=== PATIENT | female | born 1965 | race Caucasian/White ===

== ENCOUNTER 2022-09-23 10:58 | Outpatient (AMB) | payer OTHER, SELFPAY ==
--- NOTE | 2022-09-23 11:21 | MHC.PC.OV ---
Vital Signs 09/23/22 11:22 Height 5 ft 2.99 in Weight 191 lb BMI 33.8 BP 138/76 Blood Pressure Location Lt brachial Position Sitting Respiration 16 Pulse 62 Pulse Source Pulse Oximeter Temp 98.2 F Temp Source Oral Pulse Oximetry (%) 98 Oxygen Delivery Method Room Air Intake Visit Reasons: New patient-Left foot pain Intake Note: Patient is here as a new patient, is concerned about rash on hands, and a bone spur in left foot. Accompanied by: Daughter Allergies No Known Allergies Allergy (Verified 09/23/22 12:01) Medication List - Last Reconciled 09/23/22 by Godwin Kuo CNP slfnlfrbw-[id number]-[id number] ala 50-200-25 mg (Biktarvy) 1 tab PO DAILY Dental Screening Did you have a dental visit in the last 12 months?: Yes Did you have a dental problem in the last 6 months where you did not have access to dental care?: No Was dental information given to patient?: No HPI HPI Comments History of Present Illness Details 56-year-old Thai speaking female, accompanied by her daughter, presents to [facility] care She relocated to [facility] from [facility] [place] a year ago She notes she has not been seen by a PCP for the past 10 years. She had routine blood work done in [place] a year ago She has PMH significant for HTN (not on medications), HIV, on Biktarvy which she takes daily; history of bone spur left bottom foot which is controlled; on and off itchy rash to her hands. 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 She also reports fungal infection of the left great toe with discolored nail which improves and worsens. No acute symptoms today. PFSH Medical History (Updated 09/23/22 @ 12:43 by Godwin Kuo CNP) Bone spur of left foot Endometriosis High blood pressure HIV (human immunodeficiency virus infection) Jaundice Surgical History (Updated 09/23/22 @ 11:31 by Miranda Yu CMA) H/O total hysterectomy Family History (Updated 09/23/22 @ 11:32 by Miranda Yu CMA) Mother High blood pressure Father Substance abuse Social History (Updated 09/23/22 @ 11:34 by Miranda Yu CMA) Household Members: Family Housing: Apartment Are you a primary pharmacist critical care to a significant other at home: No Do you presently have visiting nurse or other home services: No 75 years or older and lives alone: No Alcohol intake: current Patient Tobacco Use Status: Never used Tobacco e-Cigarette/Vaping Use: Never Used service: No Current occupational status: employed Current occupation: [employer] Cognitive needs: No Hearing needs: No Vision needs: No Questionnaire PHQ-9 Over the last 2 weeks, how often have you been bothered by any of the following problems? 1. Little interest or pleasure in doing things: not at all 2. Feeling down, depressed, or hopeless: not at all 3. Trouble falling or staying asleep, or sleeping too much: several days 4. Feeling tired or having little energy: several days 5. Poor appetite or overeating: several days 6. Feeling bad about yourself - or that you are a failure or have let yourself or your family down: not at all 7. Trouble concentrating on things, such as reading the newspaper or watching television: not at all 8. Moving or speaking so slowly that other people could have noticed. Or the opposite - being so fidgety or restless that you have been moving around a lot more than usual: not at all 9. Thoughts that you would be better off or of hurting yourself in some way: not at all Total score: 3 Depression Screening Interpretation: Negative Source: Developed by Drs. Rey Lopez, Tessa Lowe, Marshall Lilly and colleagues, with an educational jamison from [employer]. Thrive Questionnaire I am a: Patient What is your living situation today?: I have a steady place to live Within the past 12 months, did the food you bought not last and you didn't have the money to get more?: Never true Within the past 12 months, did you worry whether your food would run out before you got money to buy more?: Never true Do you have trouble paying for medicines?: No Do you have trouble getting transportation to medical appointments?: No Do you have trouble paying your heating and electricity bill?: No Do you have trouble taking care of your child, family member or friend?: No Do you have trouble with day-to-day activities such as bathing, preparing meals, shopping, managing finances, etc.?: No Are you currently unemployed and looking for a job?: No Are you interested in more education?: No JAYSHREE-7 AMB Questionnaire JAYSHREE-7 Feeling nervous, anxious, or on edge: 0 = Not at all Not being able to stop or control worryin = Several days Worrying too much about different things: 1 = Several days Trouble relaxin = Not at all Being so restless that it is hard to sit still: 0 = Not at all Becoming easily annoyed or irritable: 1 = Several days Feeling afraid as if something awful might happen: 0 = Not at all Total JAYSHREE-7 score (0-4 normal; 5-9 mild; 10-14 moderate; 15-21 severe): 3 Source: Developed by Drs. Rey Lopez, Tessa Lowe, Marshall Lilly and colleagues, with an educational jamison from [employer]. Review of Systems Const Details: Const Denies chills, Denies fatigue, Denies fever(s), Denies headache(s) and Denies weakness ENT Denies dizziness and Denies headache(s) Card Denies chest pain, Denies lightheadedness, Denies dyspnea and Denies other (Palpitations) Resp Denies cough, Denies dyspnea, Denies wheezing and Denies other ( shortness of breath) GI Denies abdominal pain, Denies melena, Denies hematochezia, Denies change in bowel habits, Denies dyspepsia and Denies nausea Denies hematuria and Denies dysuria Musc Denies abnormal gait, Denies myalgias, Denies arthralgias, Denies numbness and Denies tingling Skin/Breast Reports rash, Reports fungal infection of the toenail, Denies unusual bruising and Denies wounds Neuro Denies abnormal gait, Denies dizziness, Denies headache(s), Denies memory loss, Denies numbness, Denies Sensory deficit (Neuro), Denies tingling and Denies weakness Psych Denies anxiety, Denies depression, Denies memory loss Endo Denies cold intolerance, Denies fatigue, Denies heat intolerance, Denies polydipsia and Denies polyuria Aller/Immun Denies wheezing Physical exam (Primary Care) Vital Signs: Last Vital Signs Temp 98.2 F 09/23/22 11:22 Pulse 62 09/23/22 11:22 Resp 16 09/23/22 11:22 BP 138/76 09/23/22 11:22 Pulse Ox 98 09/23/22 11:22 Oxygen Delivery Method Room Air 09/23/22 11:22 BMI result Body Mass Index 33.8 Tobacco/Smoking Status: Tobacco use Status Patient Tobacco Use Status Never used Tobacco 09/23/22 11:39 e-Cigarette/Vaping Use Never Used 09/23/22 11:39 PHQ-9: PHQ-9 Score PHQ-9: Total score 3 09/23/22 11:43 Depression Screening Interpretation: Negative Const Other: General: no acute distress and well developed Nutritional Appearance: well nourished Orientation/consciousness: patient oriented x3 HENMT Head: Yes normocephalic and Yes atraumatic Eyes General: appearance normal, both eyes and all related structures Pupils: Equal, round and reactive pupils present EOM: EOMs intact bilaterally Resp Effort & Inspection: normal respiratory effort Auscultation: clear to auscultation bilaterally Cardio Rate: regular rate Rhythm: regular rhythm Heart sounds: S1 normal heart sound present, S2 normal heart sound present, no gallops, no murmurs and no rubs GI Palpation (GI): No Abdominal aortic bruit present, Soft to palpation, nontender, No hepatosplenomegaly present and No Rebound tenderness present Auscultation: normal bowel sounds General: Yes no CVA tenderness Back/Spine/Pelvis Back: no CVA tenderness Cervical Spine: cervical ROM normal and No Cervical spine tenderness Thoracic/Lumbar Spine: thoraco-lumbar ROM normal, No pain with thoraco-lumbar ROM, No thoracic spinal tenderness and No lumbar spinal tenderness Extrem General: Yes normal to inspection, No edema and No calf tenderness Skin General: warm and dry. Normal skin color. Normal skin turgor Lesions: no lesions Rashes: Few nonraised, pink rash in the web of the right hand; dry skin noted to both hands Trauma: no lacerations or abrasions Wounds: no wounds Nails: Soni color nail of the left great toe Neuro General: patient oriented x3, gait normal and no focal neuro deficits Cranial nerves: Yes Equal, round and reactive pupils present Cognition (Neuro): normal cognition Gait exam (Neuro): Normal gait present Motor exam (neuro): 5/5 motor strength present throughout Sensory Exam: No Sensory deficit (Neuro) Psych Appearance: grossly normal Affect: normal affect Attitude: cooperative Thought process: Normal thought process present Assessment and Plan Assessment & Plan (1) HIV (human immunodeficiency virus infection): Code(s): B20 - Human immunodeficiency virus [HIV] disease Plan: No acute symptoms Continue to take Biktarvy as prescribed Follow up with PCP with concerns or symptoms Verbalized understanding and agrees with the treatment plan (2) High blood pressure: Code(s): I10 - Essential (primary) hypertension Plan: BP is currently 138/76, within goal of less than 140/90 Low sodium diet encouraged Follow up in 1 month or return sooner with symptoms or concerns Verbalized understanding and agreed with the plan (3) Laboratory tests ordered as part of a complete physical exam (CPE): Code(s): Z00.00 - Encounter for general adult medical examination without abnormal findings Plan: Fasting labs ordered as part of a complete physical exam. Advised to fast for at least 10 hours before getting labs drawn. May drink water Verbalized understanding and agreed with treatment plan. (4) Rash of hands: Code(s): R21 - Rash and other nonspecific skin eruption Plan: Reports on and off itchy rash to her hands Few nonraised, pink rash in the web of the right hand; dry skin noted to both hands Likely due to dry skin, eczema may also be possible Use lotion to moisturize skin May use hydrocortisone cream for severe itching Return with worsening signs and symptoms Verbalized understanding and agreed with treatment plan. (5) Onychomycosis of left great toe: Code(s): B35.1 - Tinea unguium Plan: Reports fungal infection of the left great toe with discolored nail which improves and worsens Soni color nail of the left great toe Declined oral medication treatment at this time Encouraged to inform PCP if she changes her mind on medication treatment Verbalized understanding and agreed with the plan Orders: Orders Complete Blood Count Auto Diff Today Z00.00 - Encounter for general adult medical examination without abnormal findings Comprehensive [place]. Panel Fast Today Z00.00 - Encounter for general adult medical examination without abnormal findings Lipid Panel Today Z00.00 - Encounter for general adult medical examination without abnormal findings TSH reflex Free T4 Today Z00.00 - Encounter for general adult medical examination without abnormal findings UA CC w/rflx Micro + Cult Today Z00.00 - Encounter for general adult medical examination without abnormal findings Coding Level of Care Code New Pt Level 3 (16851) Diagnoses HIV (human immunodeficiency virus infection) B20 High blood pressure I10 Laboratory tests ordered as part of a complete physical exam (CPE) Z00.00 Rash of hands R21 Onychomycosis of left great toe B35.1 Time Spent (min) 30
[2022-09-23 11:22] VITALS: BP 138/76; PULSE 62; RESP 16; TEMP 36.8; O2SAT 98; BMI 33.8
== END 2022-09-23 12:27 | disposition home or self-care (01) ==
PROVIDERS: PCP Nurse Practitioner Family; Visit Provider Nurse Practitioner Family
DX: B20 Human immunodeficiency virus [HIV] disease (principal); I10 Essential (primary) hypertension; Z00.00 Encounter for general adult medical examination without abnormal findings; R21 Rash and other nonspecific skin eruption; B35.1 Tinea unguium
CPT/HCPCS: 99203

== ENCOUNTER 2022-10-15 07:47 | Outpatient (REF) | payer OTHER, SELFPAY ==
[2022-10-15 11:22] LABS: MANUAL DIFF FLAG NO
[2022-10-15 11:45] LABS: Basophils Percent Auto 0.9 % (0-2); Eosinophils Absolute Auto 0.1 X10*3/uL (0.0-0.4); Eosinophils Percent Auto 2.5 % (0-4); Hematocrit 45.6 % (37.0-47.0); Hemoglobin 14.7 g/dl (12.0-16.0); Lymphocytes Absolute Auto 1.2 X10*3/uL (1.2-4.9); Lymphocytes Percent Auto 37.1 % (20-40); Mean Corpuscular HGB Conc 32.2 g/dl (31.0-35.0); Mean Corpuscular Hemoglobin 28.6 pg (27.0-33.0); Mean Corpuscular Volume 88.7 fL (80.0-98.0); Mean Platelet Volume 10.6 fL (9.4-12.3); Monocytes Absolute Auto 0.3 X10*3/uL (0.1-1.2); Neutrophils Absolute Auto 1.6 x10*3/uL (2.0-8.3); Neutrophils Percent Auto 50.5 % (45-73); Platelet Count 225 X10*3/uL (160-400); Red Blood Count 5.14 X10*6/uL (4.20-5.50); Red Cell Distribution Width 12.3 % (11.0-16.0); White Blood Count 3.2 X10*3/uL (4.8-10.8)
[2022-10-15 11:50] LABS: Appearance Urine Clear; Color Urine Yellow; Glucose Urine UA Negative (Negative); Leukocyte Esterase Urine Negative (Negative); Nitrite Urine Negative (Negative); PH 7.5 (5.0-9.0); Specific Gravity - Urine 1.015 (1.005-1.025); Urine Blood Negative (Negative); Urine Ketones Negative (Negative); Urine Protein Negative (Neg-Trace)
[2022-10-15 12:38] LABS: Alanine Aminotransferase 26 U/L (0-31); Albumin Level 4.5 g/dL (3.5-5.0); Alkaline Phosphatase 54 U/L (39-117); Anion Gap 14 (12-20); Aspartate Amino Transferase 21 U/L (5-31); Bilirubin Total 0.5 mg/dL (0.0-1.0); Blood Urea Nitrogen 16 mg/dL (9-16); Calcium 10.2 mg/dL (8.4-10.2); Carbon Dioxide 27 mmol/L (22-29); Chloride 104 mmol/L (96-108); Cholesterol 230 mg/dL; Estimated Glomerular Filt Rate > 60; Glucose Fasting 116 mg/dL (60-99); HDL Cholesterol 55 mg/dL; LDL Cholesterol Calculated 155 mg/dl; Potassium 4.7 mmol/L (3.3-5.1); Sodium 140 mmol/L (135-145); Triglycerides 103 mg/dL
[2022-10-15 12:56] LABS: TSH reflex Free T4 1.01 uIU/mL (0.32-4.0)
== END 2022-10-15 07:48 | disposition home or self-care (01) ==
LOC: HO.HMGCLDS 07:47
PROVIDERS: PCP Nurse Practitioner Family; Visit Provider Nurse Practitioner Family
DX: Z00.00 Encounter for general adult medical examination without abnormal findings (principal)
CPT/HCPCS: 36415; 80053; 80061; 81003; 84443; 85025

== ENCOUNTER 2022-10-21 14:46 | Outpatient (AMB) | payer OTHER, SELFPAY ==
--- NOTE | 2022-10-21 15:12 | MHC.PC.OV ---
Vital Signs 10/21/22 15:13 Height 5 ft 2 in Weight 189 lb BMI 34.6 BP 112/60 Blood Pressure Location Rt brachial Position Sitting Respiration 14 Pulse 82 Pulse Source Pulse Oximeter Temp 97.2 F Temp Source Temporal Artery Scan Pulse Oximetry (%) 99 Oxygen Delivery Method Room Air Intake Visit Reasons: 1 mos labs review, CPE Intake Note: Patient is here today for a physical and to review labs. Patient reports she would like to have a mammogram referral. Yard Brakeman Required: Yes Yard Brakeman Language: [facility] Yard Brakeman Name: Daughter Kain is present. Accompanied by: Daughter Allergies No Known Allergies Allergy (Verified 10/21/22 15:23) Medication List - Last Reconciled 10/21/22 by Godwin Kuo, RUTHANN blryswbdt-ymhibvhn-ktwjhwp ala 50-200-25 mg (Biktarvy) 1 tab PO DAILY Tobacco use date assessed: 10/21/22 Dental Screening Dental Screen Date: 10/21/22 Did you have a dental visit in the last 12 months?: Yes Did you have a dental problem in the last 6 months where you did not have access to dental care?: No Was dental information given to patient?: Patient has dentist HPI HPI Comments History of Present Illness Details 56-year-old Jamaican speaking female, accompanied by her daughter, presents for review of recent blood work and a complete physical exam. She notes the rash on her hands completely resolved with hydrocortisone cream. No acute symptoms today. She notes her last mammogram was 5 years ago in [facility]: questionable She states she has never had colonoscopy; she requests a referral She reports h/o total hysterectomy 13 years ago. She is not followed by Gynecology She states she has not received the shingles vaccines Interpretation by the patient's daughter per patient's preference. [facility] Medical History Bone spur of left foot Endometriosis High blood pressure HIV (human immunodeficiency virus infection) Jaundice Surgical History H/O total hysterectomy Family History Mother High blood pressure Father Substance abuse Social History (Reviewed 10/21/22 @ 15:21 by Ruth Guerrero Household Members: Family Housing: Apartment Are you a primary respiratory care program director to a significant other at home: No Do you presently have visiting nurse or other home services: No 75 years or older and lives alone: No Alcohol intake: current Patient Tobacco Use Status: Never used Tobacco e-Cigarette/Vaping Use: Never Used service: No Current occupational status: employed Current occupation: [employer] Cognitive needs: No Hearing needs: No Vision needs: No Review of Systems Const Details: Denies chills, Denies fatigue, Denies fever(s), Denies headache(s) and Denies weakness HEENT Denies change in vision, Denies dizziness, Denies headache(s), Denies hearing loss, Denies nasal congestion, Denies sinus pain, Denies sinus pressure and Denies sore throat Card Denies chest pain, Denies lightheadedness, Denies dyspnea and Denies other (palpitations) Resp Denies cough, Denies dyspnea and Denies wheezing GI Denies abdominal pain, Denies melena, Denies hematochezia, Denies change in bowel habits, Denies dyspepsia and Denies nausea Denies hematuria and Denies dysuria Musc Denies abnormal gait, Denies myalgias, Denies arthralgias, Denies numbness and Denies tingling Skin/Breast Denies rash, Denies unusual bruising and Denies wounds Neuro Denies abnormal gait, Denies dizziness, Denies headache(s), Denies memory loss, Denies numbness, Denies Sensory deficit (Neuro), Denies tingling and Denies weakness Psych Denies anxiety, Denies depression and Denies memory loss Endo Denies cold intolerance, Denies fatigue, Denies heat intolerance, Denies polydipsia and Denies polyuria Matias/Lymph Denies easy bleeding and Denies easy bruising Aller/Immun Denies wheezing Physical exam (Primary Care) Vital Signs: Last Vital Signs Temp 97.2 F 10/21/22 15:13 Pulse 82 10/21/22 15:13 Resp 14 10/21/22 15:13 BP 112/60 10/21/22 15:13 Pulse Ox 99 10/21/22 15:13 Oxygen Delivery Method Room Air 10/21/22 15:13 BMI result Body Mass Index 34.6 Tobacco/Smoking Status: Tobacco use Status Tobacco use date assessed 10/21/22 10/21/22 15:21 Patient Tobacco Use Status Never used Tobacco 10/21/22 15:13 e-Cigarette/Vaping Use Never Used 10/21/22 15:13 Const Other: General: no acute distress, well developed, alert and awake Nutritional Appearance: well nourished Orientation/consciousness: patient oriented x3 HENMT Head: Yes normocephalic and Yes atraumatic Ears: hearing grossly normal bilaterally and TM's normal bilaterally General nose exam: Normal external nose present and Normal nares present Mouth: Normal oral and palatal mucosa present and moist mucous membranes Teeth and gingiva: dentition normal Throat: Yes oropharynx normal Eyes Pupils: Equal, round and reactive pupils present and Pupil accommodation reflex normal EOM: EOMs intact bilaterally Neck Neck: Yes normal visual inspection, Yes no lymphadenopathy and Yes trachea midline Thyroid: Thyroid normal Carotids: no bruits Lymphatic: no lymphadenopathy noted Chest Chest palpation & inspection: normal inspection of the chest Resp Effort & Inspection: normal respiratory effort Auscultation: clear to auscultation bilaterally Cardio Rate: regular rate Rhythm: regular rhythm Heart sounds: S1 normal heart sound present, S2 normal heart sound present, no gallops, no murmurs and no rubs Bruits: no abdominal aortic bruits and no carotid bruits GI Palpation (GI): No Abdominal aortic bruit present, Soft to palpation, nontender, No hepatosplenomegaly present and No Rebound tenderness present Auscultation: normal bowel sounds General: Yes no CVA tenderness Back/Spine/Pelvis Back: no CVA tenderness Cervical Spine: cervical ROM normal and No Cervical spine tenderness Thoracic/Lumbar Spine: thoraco-lumbar ROM normal, No pain with thoraco-lumbar ROM, No thoracic spinal tenderness and No lumbar spinal tenderness Skin General: warm and dry. Normal skin color. Normal skin turgor Lesions: no lesions Rashes: no rashes Trauma: no lacerations or abrasions Wounds: no wounds Nails: Onychomycosis of left great toe Neuro General: patient oriented x3, gait normal and CN's II-XI intact bilaterally Cranial nerves: Yes Equal, round and reactive pupils present Cognition (Neuro): normal cognition Gait exam (Neuro): Normal gait present Motor exam (neuro): 5/5 motor strength present throughout Sensory Exam: No Sensory deficit (Neuro) Deep tendon reflexes (DTR's): Right patellar reflex intensity grade: 2+ and Left patellar reflex intensity grade: 2+ Extrem General: Yes normal to inspection, No edema and No calf tenderness Psych Appearance: grossly normal Affect: normal affect Attitude: cooperative Thought process: Normal thought process present Assessment and Plan Assessment & Plan (1) Normal physical examination, routine: Code(s): Z00.00 - Encounter for general adult medical examination without abnormal findings Plan: No significant physical restrictions or limitations noted Advised to schedule her next physical exam for a year from today Return with symptoms or concerns Verbalized understanding and agreed with treatment plan (2) Pre-diabetes: Code(s): R73.03 - Prediabetes Plan: Recent blood work reviewed with the patient Fasting blood glucose is slightly elevated, 116 A1c is 5.9%, indicates prediabetes ADA diet and routine exercise encouraged Follow-up with concerns or symptoms Verbalized understanding and agreed with treatment plan. (3) Hypercholesterolemia: Code(s): E78.00 - Pure hypercholesterolemia, unspecified Plan: Recent blood work reviewed with the patient Total cholesterol and LDL are slightly elevated She is willing to start maintaining healthy diet Advised to limit foods high in saturated fat and avoid foods high in trans fat Routine exercise encouraged Verbalized understanding and agreed with the treatment plan. (4) Colon cancer screening: Code(s): Z12.11 - Encounter for screening for malignant neoplasm of colon Plan: Referred to Gastroenterology (5) Breast cancer screening by mammogram: Code(s): Z12.31 - Encounter for screening mammogram for malignant neoplasm of breast Plan: Mammogram referral made (6) High blood pressure: Code(s): I10 - Essential (primary) hypertension Plan: Blood pressure is 112/60 Low-sodium diet encouraged Return with concerns or symptoms Verbalized understanding and agreed with the plan. Orders: Orders MM screening mammo BI Today Z12.31 - Encounter for screening mammogram for malignant neoplasm of breast Referrals Gastroenterology Referral Z12.11 - Encounter for screening for malignant neoplasm of colon Coding Level of Care Code New Pt Prev Care 40-64y(16345) Diagnoses Normal physical examination, routine Z00.00 Pre-diabetes R73.03 Hypercholesterolemia E78.00 Colon cancer screening Z12.11 Breast cancer screening by mammogram Z12.31 High blood pressure I10
[2022-10-21 15:13] VITALS: BP 112/60; PULSE 82; RESP 14; TEMP 36.2; O2SAT 99; BMI 34.6
== END 2022-10-21 15:50 | disposition home or self-care (01) ==
PROVIDERS: PCP Nurse Practitioner Family; Visit Provider Nurse Practitioner Family
DX: Z00.00 Encounter for general adult medical examination without abnormal findings (principal); R73.03 Prediabetes; E78.00 Pure hypercholesterolemia, unspecified; I10 Essential (primary) hypertension; Z12.11 Encounter for screening for malignant neoplasm of colon; Z12.31 Encounter for screening mammogram for malignant neoplasm of breast
CPT/HCPCS: 99386; 99396

== ENCOUNTER 2022-10-28 08:12 | Outpatient (REF) | payer OTHER, SELFPAY ==
--- NOTE | ~2022-10-28 | MM_ITS ---
EXAMINATION: MM SCREENING DIGITAL BREAST TOMOSYNTHESIS, BILATERAL CLINICAL INFORMATION: Screening. Asymptomatic. COMPARISON: Mammography: New Baseline exam. Patient's last mammogram was in the , 2017 and as per patient was normal. TECHNIQUE: Digital breast tomosynthesis is performed in both the craniocaudal and mediolateral oblique views along with computer-aided detection (CAD). Synthesized 2D images are generated from the tomosynthesis. FINDINGS: The breasts are heterogeneously dense, which may obscure small masses (ACR BI-RADS breast composition Category c). There are no suspicious masses, suspicious grouped calcifications, or areas of architectural distortion. The parenchymal pattern is stable from prior exams. No skin abnormality. MM/MM tomosynthesis screening BI IMPRESSION: No mammographic evidence of malignancy. ASSESSMENT: BI-RADS BI-RADS 1 - Negative RECOMMENDATION: Routine annual mammography screening. 1 year F/U This examination should not preclude the clinical evaluation of a suspicious palpable abnormality. This patient's information was entered into a reminder system with a target due date for their next mammogram.
== END 2022-10-28 08:13 | disposition home or self-care (01) ==
LOC: HO.MAMMO 08:12
PROVIDERS: PCP Nurse Practitioner Family; Visit Provider Nurse Practitioner Family
DX: Z12.31 Encounter for screening mammogram for malignant neoplasm of breast (principal)
CPT/HCPCS: 77063; 77067

== ENCOUNTER → 2022-10-28 08:45 | Outpatient (BNV) | payer OTHER, SELFPAY | PROVIDERS: PCP Nurse Practitioner Family; Visit Provider Radiology Diagnostic Radiology | DX: Z12.31 Encounter for screening mammogram for malignant neoplasm of breast (principal) | CPT/HCPCS: 77063; 77067 ==

== ENCOUNTER 2022-12-23 12:49 | Outpatient (AMB) | payer OTHER, SELFPAY ==
--- NOTE | 2022-12-23 12:57 | MHC.PC.OV ---
Vital Signs 12/23/22 12:58 Height 5 ft 2 in Weight 168 lb 6 oz BMI 30.8 BP 124/72 Blood Pressure Location Rt brachial Position Sitting Respiration 13 Pulse 64 Pulse Source Pulse Oximeter Temp 97.6 F Temp Source Temporal Artery Scan Pulse Oximetry (%) 98 Oxygen Delivery Method Room Air Intake Visit Reasons: Follow up mammo Inside Tester Required: Yes Inside Tester Name: Kain (Daughter) Allergies No Known Allergies Allergy (Verified 12/23/22 13:04) Tobacco use date assessed: 10/21/22 Dental Screening Dental Screen Date: 12/23/22 Did you have a dental visit in the last 12 months?: Yes Did you have a dental problem in the last 6 months where you did not have access to dental care?: No Was dental information given to patient?: Patient has dentist HPI HPI Comments History of Present Illness Details 57-year-old Tanzanian speaking female, accompanied by her daughter, presents for review of her recent mammogram results. She is concerned regarding the report she received on the mail that her breasts are heterogeneously dense, which may obscure small masses and US and MR were mentioned. She was referred for a mammogram after she noted order last visit that her last mammogram was 5 years ago in the [facility] and the results were questionable. She had a mammogram done last month with normal findings. It was recommended that she follow-up for annual mammogram screening. She denies acute symptoms. [facility] Medical History Jaundice Bone spur of left foot High blood pressure HIV (human immunodeficiency virus infection) Endometriosis Surgical History H/O total hysterectomy Family History Mother High blood pressure Father Substance abuse Social History Household Members: Family Housing: Apartment Are you a primary manager care to a significant other at home: No Do you presently have visiting nurse or other home services: No 75 years or older and lives alone: No Alcohol intake: current Patient Tobacco Use Status: Never used Tobacco e-Cigarette/Vaping Use: Never Used service: No Current occupational status: employed Current occupation: cook Cognitive needs: No Hearing needs: No Vision needs: No Review of Systems Const Details: Const Denies chills, Denies fatigue, Denies fever(s), Denies headache(s) and Denies weakness ENT Denies dizziness and Denies headache(s) Card Denies chest pain, Denies lightheadedness, Denies dyspnea and Denies other (Palpitations) Resp Denies cough, Denies dyspnea, Denies wheezing and Denies other ( shortness of breath) GI Denies abdominal pain, Denies melena, Denies hematochezia, Denies change in bowel habits, Denies dyspepsia and Denies nausea Denies hematuria and Denies dysuria Musc Denies abnormal gait, Denies myalgias, Denies arthralgias, Denies numbness and Denies tingling Skin/Breast Denies rash, Denies unusual bruising and Denies wounds Neuro Denies abnormal gait, Denies dizziness, Denies headache(s), Denies memory loss, Denies numbness, Denies Sensory deficit (Neuro), Denies tingling and Denies weakness Psych Denies anxiety, Denies depression, Denies memory loss Endo Denies cold intolerance, Denies fatigue, Denies heat intolerance, Denies polydipsia and Denies polyuria Aller/Immun Denies wheezing Physical exam (Primary Care) Vital Signs: Last Vital Signs Temp 97.6 F 12/23/22 12:58 Pulse 64 12/23/22 12:58 Resp 13 12/23/22 12:58 BP 124/72 12/23/22 12:58 Pulse Ox 98 12/23/22 12:58 Oxygen Delivery Method Room Air 12/23/22 12:58 BMI result Body Mass Index 30.8 Tobacco/Smoking Status: Tobacco use Status Tobacco use date assessed 10/21/22 12/23/22 13:05 Patient Tobacco Use Status Never used Tobacco 12/23/22 13:05 e-Cigarette/Vaping Use Never Used 12/23/22 13:05 Const Other: General: no acute distress and well developed Nutritional Appearance: well nourished Orientation/consciousness: patient oriented x3 HENMT Head: Yes normocephalic and Yes atraumatic Eyes General: appearance normal, both eyes and all related structures Pupils: Equal, round and reactive pupils present EOM: EOMs intact bilaterally Resp Effort & Inspection: normal respiratory effort Auscultation: clear to auscultation bilaterally Cardio Rate: regular rate Rhythm: regular rhythm Heart sounds: S1 normal heart sound present, S2 normal heart sound present, no gallops, no murmurs and no rubs GI Palpation (GI): No Abdominal aortic bruit present, Soft to palpation, nontender, No hepatosplenomegaly present and No Rebound tenderness present Auscultation: normal bowel sounds General: Yes no CVA tenderness Back/Spine/Pelvis Back: no CVA tenderness Cervical Spine: cervical ROM normal and No Cervical spine tenderness Thoracic/Lumbar Spine: thoraco-lumbar ROM normal, No pain with thoraco-lumbar ROM, No thoracic spinal tenderness and No lumbar spinal tenderness Extrem General: Yes normal to inspection, No edema and No calf tenderness Skin General: warm and dry. Normal skin color. Normal skin turgor Lesions: no lesions Rashes: no rashes Trauma: no lacerations or abrasions Wounds: no wounds Nails: normal Neuro General: patient oriented x3, gait normal and no focal neuro deficit Cranial nerves: Yes Equal, round and reactive pupils present Cognition (Neuro): normal cognition Gait exam (Neuro): Normal gait present Sensory Exam: No Sensory deficit (Neuro) Psych Appearance: grossly normal Affect: normal affect Attitude: cooperative Thought process: Normal thought process present Assessment and Plan Assessment & Plan (1) Breast cancer screening by mammogram: Code(s): Z12.31 - Encounter for screening mammogram for malignant neoplasm of breast Plan: Normal mammogram. Breasts are heterogeneously dense, which may obscure small masses. Patient has not had any acute symptoms related to her breasts She is encouraged to follow-up for an will mammogram as recommended Follow-up with PCP as planned or return sooner with breast mass or symptoms Verbalized understanding and agreed with treatment plan. Interpretation by the patient's daughter per the patient's preference. Coding Level of Care Code Est Pt Level 2 (86110) Diagnoses Breast cancer screening by mammogram Z03.16
[2022-12-23 12:58] VITALS: BP 124/72; PULSE 64; RESP 13; TEMP 36.4; O2SAT 98; BMI 30.8
== END 2022-12-23 13:56 | disposition home or self-care (01) ==
PROVIDERS: PCP Nurse Practitioner Family; Visit Provider Nurse Practitioner Family
DX: R92.333 Mammographic heterogeneous density, bilateral breasts (principal)
CPT/HCPCS: 99212

== ENCOUNTER 2023-02-24 13:17 | Outpatient (AMB) | payer OTHER, SELFPAY ==
--- NOTE | 2023-02-24 13:19 | A.OFFVIS_ITS ---
Intake Vital Signs 02/24/23 13:24 Height 5 ft 2 in Weight 168 lb BMI 30.7 BP 107/63 Blood Pressure Location Lt brachial Position Sitting Pulse 66 Intake Visit Reasons: Colonoscopy Screening Intake Note: Patient presents to in office visit today as a new patient for colonoscopy screening. CC: Patient c/o hemorrhoids, and constipation. Per patient she has never had a colonoscopy done before. Photography Editor Required: Yes Photography Editor Language: Indian Photography Editor Name: daughter Accompanied by: Daughter Allergies No Known Allergies Allergy (Verified 02/24/23 13:25) HPI Colonoscopy Screening HPI Details 57 year old? female with past medical hi story of hypercholesteremia, HIV is her here today for pre colonoscopy screening.? Patient was sent to us by her PCP.? This is her first colonoscopy screening.? Patient denies any gastrointestinal symptoms in the past or at present.? Denies any personal or family history of gastrointestinal disease, colon polyps, or cancer.? Denies history of difficulty with sedation or anesthesia in the past.? Negative for history of sleep apnea.? Denies any history of cardiac, renal, pulmonary, or hepatic disease.?? Patient was diagnosed last year with HIV currently receiving treatment with Biktarvy.? Patient is not on any anticoagulation therapy. PFSH Medical History Jaundice Bone spur of left foot High blood pressure HIV (human immunodeficiency virus infection) Endometriosis Surgical History H/O total hysterectomy Family History Mother High blood pressure Father Substance abuse Social History Household Members: Family Housing: Apartment Are you a primary acute care nurse practitioner to a significant other at home: No Do you presently have visiting nurse or other home services: No 75 years or older and lives alone: No Alcohol intake: current Patient Tobacco Use Status: Never used Tobacco e-Cigarette/Vaping Use: Never Used service: No Current occupational status: employed Current occupation: cook Cognitive needs: No Hearing needs: No Vision needs: No Review of Systems Const Denies weight gain and Denies weight loss ENT Reports no additional complaints, Denies dysphagia and Denies odynophagia Card Reports no additional complaints Resp Reports no additional complaints GI Denies abdominal pain, Denies belching, Denies melena, Denies bloating, Reports constipation, Denies dysphagia, Denies excessive flatus, Denies dyspepsia, Denies heartburn, Denies diarrhea, Denies loose stools, Denies nausea, Denies odynophagia and Denies vomiting Reports no additional complaints Musc Reports no additional complaints Neuro Reports no additional complaints Psych Reports no additional complaints Endo Reports no additional complaints Physical Exam Const General: healthy appearing, no acute distress and well developed Nutritional Appearance: obese Orientation/consciousness: patient oriented x3 HEENT Head: Yes normal to inspection, Yes normocephalic and Yes atraumatic Face and sinus: Yes normal facial exam Mouth: Normal oral and palatal mucosa present Throat: Yes posterior oropharynx normal, Yes tonsils normal and Yes uvula midline Eyes General: appearance normal, both eyes and all related structures Neck Neck: Yes normal visual inspection, Yes full ROM and Yes trachea midline Thyroid: Thyroid normal Resp Effort & Inspection: normal respiratory effort, able to speak in complete sentences, no tracheal deviation and symmetric chest movement Auscultation: clear to auscultation bilaterally Cardio Rate: regular rate GI Inspection: Yes normal to inspection, No distended and Yes obesity Palpation (GI): Soft to palpation, not firm, nontender and No hepatosplenomegaly present Auscultation: normal bowel sounds General: Yes no CVA tenderness Back/Spine/Pelvis Back: no CVA tenderness Skin General skin exam: elasticity normal, turgor normal and dry skin Neuro General: patient oriented x3 Psych Appearance: grossly normal Mental Status: mental status grossly normal Affect: normal affect Assessment & Plan Assessment & Plan (1) Colon cancer screening: Code(s): Z12.11 - Encounter for screening for malignant neoplasm of colon (2) Constipation: Code(s): K59.00 - Constipation, unspecified Qualifiers: Constipation type: slow transit constipation Qualified Code(s): K59.01 - Slow transit constipation (3) External hemorrhoid: Code(s): K64.4 - Residual hemorrhoidal skin tags Plan Patient denies any cardiac or respiratory symptoms.? Patient reports recently she has been more constipated than usual. Will start patient on MiraLax and stool softeners. Patient was also encouraged to increase fluid intake and activity to promote better bowel motility. Patient also reports to have external hemorrhoids. Will send Proctosol to pharmacy. Denies any issues with anesthesia in the past.? Denies any history of sleep apnea.? Not on any anticoagulation therapy.? No family or personal history of colon cancer or polyps.? Patient denies melena, hematochezia, unintentional weight loss or ribbon like stools.? Discussed at length the pre-procedure,? prep, diet & medications as well as what to expect prior, during and after the procedure.?? Stressed the importance of good bowel prep. ?Recommended the use of Vaseline or Calmoseptine OTC & baby wipes with bowel movements to promote comfort.? Patient will return in 4 weeks to make sure that she is moving her bowels better. Both patient and her daughter are agreeable to plan of care and verbalizes understanding of instructions. They were given the opportunity to ask questions and all questions answered. Thank you for allowing me to participate in her care Medications: New polyethylene glycol 3350 (Miralax) 17 grams PO DAILY 510 grams 2RF docusate sodium 100 mg PO BEDTIME 90 caps 3RF K59.00 - Constipation, unspecified hydrocortisone 2.5% (Proctosol HC) 1 appl OR BID-QID PRN 30 grams 2RF hemorrhoids K64.9 - Unspecified hemorrhoids Coding Level of Care Code New Pt Level 3 (76691) Diagnoses Colon cancer screening Z12.11 Slow transit constipation K59.01 Constipation type: slow transit constipation External hemorrhoid K64.4 Time Spent (min) 40 Comment 30 minutes spent with patient and additional 10 minutes spent reviewing her records
[2023-02-24 13:24] VITALS: BP 107/63; PULSE 66; BMI 30.7
== END 2023-02-24 13:54 | disposition home or self-care (01) ==
PROVIDERS: PCP Nurse Practitioner Family; Visit Provider Nurse Practitioner Family
DX: Z12.11 Encounter for screening for malignant neoplasm of colon (principal); K59.01 Slow transit constipation; K64.4 Residual hemorrhoidal skin tags; Z01.818 Encounter for other preprocedural examination
CPT/HCPCS: 99203

== ENCOUNTER → 2023-02-24 13:17 | Outpatient (BNVA) | payer OTHER, SELFPAY | PROVIDERS: PCP Nurse Practitioner Family; Visit Provider Nurse Practitioner Family | DX: Z12.11 Encounter for screening for malignant neoplasm of colon (principal); K59.01 Slow transit constipation; K64.4 Residual hemorrhoidal skin tags | CPT/HCPCS: 99202 ==

== ENCOUNTER 2023-04-01 13:24 | Outpatient (AMB) | payer OTHER, SELFPAY ==
--- NOTE | 2023-04-01 13:36 | MHC.OFFVIS ---
Intake Vital Signs 04/01/23 13:39 Height 5 ft 2 in Weight 169 lb 12.095 oz BMI 31.0 BP 118/58 L Blood Pressure Location Lt brachial Position Sitting Pulse 70 Intake Visit Reasons: 4 week follow up Intake Note: Raymond presents in the office as a 4 week follow up. CC: Systems Technician Required: Yes Systems Technician Name: Daughter Allergies No Known Allergies Allergy (Verified 04/01/23 13:39) HPI 4 week follow up HPI Details LAST VISIT Colon cancer screening Constipation External hemorrhoid Plan Patient denies any cardiac or respiratory symptoms.? Patient reports recently she has been more constipated than usual. Will start patient on MiraLax and stool softeners. Patient was also encouraged to increase fluid intake and activity to promote better bowel motility. Patient also reports to have external hemorrhoids. Will send Proctosol to pharmacy. Denies any issues with anesthesia in the past.? Denies any history of sleep apnea.? Not on any anticoagulation therapy.? No family or personal history of colon cancer or polyps.? Patient denies melena, hematochezia, unintentional weight loss or ribbon like stools.? Discussed at length the pre-procedure,? prep, diet & medications as well as what to expect prior, during and after the procedure.?? Stressed the importance of good bowel prep. ?Recommended the use of Vaseline or Calmoseptine OTC & baby wipes with bowel movements to promote comfort.? Patient will return in 4 weeks to make sure that she is moving her bowels better. Both patient and her daughter are agreeable to plan of care and verbalizes understanding of instructions. They were given the opportunity to ask questions and all questions answered. ? Thank you for allowing me to participate in her care Medications New polyethylene glycol 3350 (Miralax) 17 grams PO DAILY 510 grams 2RF docusate sodium 100 mg PO BEDTIME 90 caps 3RF K59.00 hydrocortisone 2.5% (Proctosol HC) 1 appl ND BID-QID PRN 30 grams 2RF hemorrhoids K64.9 TODAY'S VISIT Patient is here today for follow-up and to discuss going for colonoscopy. Patient reports that she is doing better now and is moving her bowels without any issues. Patient denies any rectal pain or discomfort. Denies any rectal bleeding. As mentioned above patient had no issues with anesthesia in the past. No history of sleep apnea. Not on any anticoagulation medication. Patient denies any cardiac or respiratory symptoms. [facility] Medical History Jaundice Bone spur of left foot High blood pressure HIV (human immunodeficiency virus infection) Endometriosis Surgical History H/O total hysterectomy Family History Mother High blood pressure Father Substance abuse Social History Household Members: Family Housing: Apartment Are you a primary interior plant caretaker to a significant other at home: No Do you presently have visiting nurse or other home services: No 75 years or older and lives alone: No Alcohol intake: current Patient Tobacco Use Status: Never used Tobacco e-Cigarette/Vaping Use: Never Used service: No Current occupational status: employed Current occupation: [employer] Cognitive needs: No Hearing needs: No Vision needs: No Review of Systems Const Denies weight gain and Denies weight loss ENT Reports no additional complaints, Denies dysphagia and Denies odynophagia Card Reports no additional complaints Resp Reports no additional complaints GI Denies abdominal pain, Denies belching, Denies melena, Denies bloating, Denies change in bowel habits, Denies dysphagia, Denies excessive flatus, Denies dyspepsia, Denies heartburn, Denies diarrhea, Denies loose stools, Denies nausea, Denies odynophagia and Denies vomiting Musc Reports no additional complaints Neuro Reports no additional complaints Psych Reports no additional complaints Endo Reports no additional complaints Physical Exam Vital Signs: BMI result Body Mass Index 31.0 Const General: healthy appearing, no acute distress and well developed Nutritional Appearance: obese Orientation/consciousness: patient oriented x3 Resp Effort & Inspection: normal respiratory effort, able to speak in complete sentences, no tracheal deviation and symmetric chest movement Auscultation: clear to auscultation bilaterally Cardio Rate: regular rate GI Inspection: Yes normal to inspection, No distended and Yes obesity Palpation (GI): Soft to palpation, not firm, nontender and No hepatosplenomegaly present Auscultation: normal bowel sounds General: Yes no CVA tenderness Back/Spine/Pelvis Back: no CVA tenderness Skin General skin exam: elasticity normal, turgor normal and dry skin Neuro General: patient oriented x3 Psych Appearance: grossly normal Mental Status: mental status grossly normal Assessment & Plan Assessment & Plan (1) Colon cancer screening: Code(s): Z12.11 - Encounter for screening for malignant neoplasm of colon (2) Constipation: Code(s): K59.00 - Constipation, unspecified Qualifiers: Constipation type: slow transit constipation Qualified Code(s): K59.01 - Slow transit constipation (3) External hemorrhoid: Code(s): K64.4 - Residual hemorrhoidal skin tags Plan Continue MiraLax daily. What to expect before during and after procedure discussed with patient. Stressed the importance of good bowel prep day before the procedure as well as went over clear liquid diet. Both patient and her daughter are agreeable to plan of care and verbalized understanding being of instructions. They were given the opportunity to ask questions and all questions answered. I will see patient after the procedure. Patient will call the office before if she will have any GI concerning symptoms. Thank you for allowing me to participate in her care Medications: New polyethylene glycol 3350 (Miralax) As directed by gastroenterology department at [facility] 238 grams PO ONCE 238 grams 0RF Z12.11 - Encounter for screening for malignant neoplasm of colon bisacodyl (Dulcolax (bisacodyl)) take 4 tabs at noon the day before your colonoscopy 20 mg (4 x 5 mg) PO ONCE 1 day 4 tabs 0RF Z12.11 - Encounter for screening for malignant neoplasm of colon Coding Level of Care Code Est Pt Level 3 (28105) Diagnoses Colon cancer screening Z12.11 Slow transit constipation K59.01 Constipation type: slow transit constipation External hemorrhoid K64.4 Time Spent (min) 30 Comment 20 minutes spent with patient and additional 10 minutes spent reviewing her records
[2023-04-01 13:39] VITALS: BP 118/58; PULSE 70; BMI 31.0
== END 2023-04-01 13:55 | disposition home or self-care (01) ==
PROVIDERS: PCP Nurse Practitioner Family; Visit Provider Nurse Practitioner Family
DX: Z12.11 Encounter for screening for malignant neoplasm of colon (principal); K59.01 Slow transit constipation; K64.4 Residual hemorrhoidal skin tags; Z01.818 Encounter for other preprocedural examination
CPT/HCPCS: 99213

== ENCOUNTER → 2023-04-01 13:24 | Outpatient (BNVA) | payer OTHER, SELFPAY | PROVIDERS: PCP Nurse Practitioner Family; Visit Provider Nurse Practitioner Family | DX: K59.01 Slow transit constipation (principal); K64.4 Residual hemorrhoidal skin tags; Z79.899 Other long term (current) drug therapy | CPT/HCPCS: 99212 ==

== ENCOUNTER 2023-11-03 11:02 | Day surgery (SDC) | payer OTHER, SELFPAY ==
--- NOTE | 2023-10-31 09:28 | P.CONAN_ITS ---
Documented by User: Shannan Cedillo NP 10/31/23 09:28 HPI - Anesthesia Eval Consult details Narrative: 57yo F for Colonoscopy PMFSH Active Problems Active Problems: All Active Problems Pre-diabetes (Acute) Breast cancer screening by mammogram (Acute) Normal physical examination, routine (Acute) Colon cancer screening (Acute) Hypercholesterolemia (Acute) Elevated fasting glucose (Acute) Onychomycosis of left great toe (Acute) Rash of hands (Acute) Laboratory tests ordered as part of a complete physical exam (CPE) (Acute) High blood pressure (Acute) HIV (human immunodeficiency virus infection) (Acute) Past Medical History Medical History Jaundice Bone spur of left foot High blood pressure HIV (human immunodeficiency virus infection) Endometriosis Family History Family History Mother High blood pressure Father Substance abuse Surgical History Surgical History H/O total hysterectomy Social History Social History Household Members: Family Housing: Apartment Are you a primary medical care administrator to a significant other at home: No Do you presently have visiting nurse or other home services: No Alcohol intake: current Patient Tobacco Use Status: Never used Tobacco e-Cigarette/Vaping Use: Never Used Use of substances other than those prescribed or required for medical reasons: No Are you DNR?: No Advance Directives: No Advance Directives Information Provided: Yes service: No Current occupational status: employed Current occupation: [employer] Cognitive needs: No Hearing needs: No Vision needs: No Meds Allergies Allergy/AdvReac Type Severity Reaction Status Date / Time No Known Allergies Allergy Verified 11/03/23 13:27 Home Medications ?Medication ?Instructions ?Recorded ?Confirmed ?Last Taken ?Type bictegravir 50 mg-emtricitabine 1 tab PO DAILY 09/23/22 11/03/23 11/02/23 History 200 mg-tenofovir alafenam 25 mg tablet (Biktarvy) Assessment and Plan Assessment Anesthesia Assessment: Chart Reviewed Documented by User: Prema Cox MD 11/03/23 14:22 [facility] Past Medical History Medical History Jaundice Bone spur of left foot High blood pressure HIV (human immunodeficiency virus infection) Endometriosis Family History Family History Mother High blood pressure Father Substance abuse Family history of problems with anesthesia: No Surgical History Surgical History H/O total hysterectomy History of Problems with Anesthesia: No Social History Social History Household Members: Family Housing: Apartment Are you a primary medical care administrator to a significant other at home: No Do you presently have visiting nurse or other home services: No Alcohol intake: current Patient Tobacco Use Status: Never used Tobacco e-Cigarette/Vaping Use: Never Used Use of substances other than those prescribed or required for medical reasons: No Are you DNR?: No Advance Directives: No Advance Directives Information Provided: Yes service: No Current occupational status: employed Current occupation: [employer] Cognitive needs: No Hearing needs: No Vision needs: No Meds Allergies Allergy/AdvReac Type Severity Reaction Status Date / Time No Known Allergies Allergy Verified 11/03/23 13:27 Home Medications ?Medication ?Instructions ?Recorded ?Confirmed ?Last Taken ?Type bictegravir 50 mg-emtricitabine 1 tab PO DAILY 09/23/22 11/03/23 11/02/23 Histo ry 200 mg-tenofovir alafenam 25 mg tablet (Biktarvy) Exam Airway Mallampati Class: II (permananet bridge, caps lateral) TM Dist: >3cm Neck ROM: Full Heart: rrr Lungs: cta Assessment and Plan Assessment Anesthesia Assessment: Anesthesia Plan Discussed Final Anesthetic Review Family History of Problems with Anesthesia: No History of Problems with Anesthesia: No NPO: Yes ASA Class: II Final Preanesthetic Review: No Changes in Pt Med Stat, Meds/Allgs Chart Reviewed and Consent Obtained/Reviewed Patient Risk: Low Procedure Risk: Low Anesthetic Plan Anesthetic Plan: MAC: Disposition: Standard PACU
[2023-11-03 13:10] VITALS: BMI 23.0
--- NOTE | 2023-11-03 13:25 | MHC.SHP ---
Pre-Procedural Eval Section A - 24 Hr Update-Section A only Date of Service: 11/03/23 The patient is an INPATIENT: No The patient has been examined within 24 hours of the surgical procedure. The History & Physical has been completed within 30 days and I have reviewed it.: No Section B - Complete if H&P > 30 days Chief Complaint: Screening, constipation Relevant Family History (Specify if Yes): No Relevant Social History: None Present Medications: see Short Stay Collaborative assessment Medical History: Significant History (Jaundice Bone spur of left foot High blood pressure HIV (human immunodeficiency virus infection) Endometriosis) History of Previous Operations: Relevant previous surgery/procedure and date(s) (Status post hysterectomy) Allergies: Allergies Allergy/AdvReac Type Severity Reaction Status Date / Time No Known Allergies Allergy Verified 04/01/23 13:39 Review of Systems Sugical H&P ROS: Negative: Constitution, Cardiovascular, Respiratory and Gastrointestinal Exam Surgical H&P Exam: Normal: Heart, Normal: Lungs, Normal: Extremities and Normal: Abdomen Plan Diagnosis/Plan: Unchanged I have reviewed the history and physical and performed a pertinent physical examination on my patient. No changes have occurred unless specified. Time Spent With Patient Time: Total time managing care of this patient today ____ minutes.
[2023-11-03 13:34] VITALS: BP 117/55; PULSE 56; RESP 16; TEMP 36.2; O2SAT 99
[2023-11-03] MEDS: Lactated Ringers 1,000 ML 100 ML IVCONT (13:35)
[2023-11-03 14:51] VITALS: BP 105/57; PULSE 73; RESP 14; TEMP 36.2; O2SAT 99
--- NOTE | 2023-11-03 14:52 | P.OPN-COLO_ITS ---
Colonoscopy Operative Note Operative Note Date of Service: 11/03/23 Narrative: COLONOSCOPY TILL CECUM WITH BIOPSIES, SNARE POLYPECTOMY AND HEMOCLIP PLACEMENT Pre-op diagnosis: Colon cancer screening (First colonoscopy). Post-op diagnosis:? Colon polyps, Diverticulosis Endoscopist:? Mango Jo MD Anesthesia:?MAC Consent: Indications for the procedure and potential complications of bleeding, perforation, reaction to medications and missed diagnosis were discussed with the patient and informed consent was obtained. Instrument: Olympus PCF 190 L variable stiffness pediatric colonoscope Monitoring: Vital signs and clinical assessment, intermittent blood pressure monitoring, continuous EKG monitoring, Pulse oximetry and Carbon Dioxide monitoring were done throughout the procedure. Please see anesthesia flowsheet. Colon withdrawl time was 20 minutes. Procedure: The patient was placed in the left lateral decubitis position and pre-procedure medications were administered. After a digital rectal examination of the ano-rectum, the video colonoscope was inserted into the rectum and advanced through the colon to the cecum. The colonoscope was slowly withdrawn in a retrograde panoramic fashion and the colon mucosa was carefully examined including a retroflexed view of the rectum. Findings and interventions are described below. Procedure Difficulty: without difficulty Findings: Terminal Ileum: Not evaluated Cecum: A 2-3 mm sessile polyp - removed with a cold biopsy Ascending Colon: A 7-8 mm sessile polyp in the distal AC/hepatic flexure - removed with a cold snare Transverse Colon: Normal Descending Colon: Normal Sigmoid Colon: Moderate diverticulosis Rectum: A 3-4 mm sessile polyp - removed with a cold biopsy. A 10 - 12 mm sessile polyp in the distal rectum - removed with a cold snare. Some bleeding noted from the polypectomy site - controlled with placement of a hemoclip Ano-rectum: Normal Colon preparation: Good after some irrigation. [place] Bowel Preparation Scale Right colon; 2 Transverse colon: 2 Left colon; 2 (0 = Unprepared colon segment with mucosa not seen due to solid stool that cannot be cleared. 1 = Portion of mucosa of the colon segment seen, but other areas of the colon segment not well seen due to staining, residual stool and/or opaque liquid. 2 = Minor amount of residual staining, small fragments of stool and/or opaque liquid, but mucosa of colon segment seen well. 3 = Entire mucosa of colon segment seen well with no residual staining, small fragments of stool or opaque liquid) Impression and Post Procedure Diagnosis: Colonoscopy Findings: Four polyps were removed Moderate diverticulosis seen in the sigmoid colon Plan: Pt has a FU appointment on 12/08/23 with ILDA Orourke Repeat Colonoscopy in 3-5 years if polyps are adenomatous and 10 year if polyps are hyperplastic. Above findings were reviewed with the patient and relevant handouts were given and the discharge area. BIOPSIES SHOWED: A. Colon, ascending, polypectomy: Tubular adenoma; negative for high-grade dysplasia. B. Colon, cecum, polypectomy: Clinically polypoid colonic mucosa noted; negative for a hyperplastic or neoplastic process. C. Rectum, polypectomy x2: Tubular adenoma(1); negative for high-grade dysplasia Letter sent advising repeat colon in 3 years
[2023-11-03 15:06] VITALS: BP 115/67; PULSE 50; RESP 18; TEMP 36.3; O2SAT 100
== END 2023-11-03 15:32 | disposition home or self-care (01) ==
PROVIDERS: PCP Nurse Practitioner Family; Visit Provider Internal Medicine Gastroenterology
PROC: 0DJD8ZZ Inspection of Lower Intestinal Tract, Via Natural or Artificial Opening Endoscopic (ICD-10-PCS; CPT 45378; principal; 2023-11-03 13:50)
DX: Z12.11 Encounter for screening for malignant neoplasm of colon (principal); D12.2 Benign neoplasm of ascending colon; D12.8 Benign neoplasm of rectum; K63.5 Polyp of colon; K57.30 Diverticulosis of large intestine without perforation or abscess without bleeding; K59.01 Slow transit constipation; Z21 Asymptomatic human immunodeficiency virus [HIV] infection status
CPT/HCPCS: 45385; 45380; 88305; J2704

== ENCOUNTER → 2023-11-03 11:02 | Outpatient (BNV) | payer OTHER, SELFPAY | PROVIDERS: PCP Nurse Practitioner Family; Visit Provider Internal Medicine Gastroenterology | DX: Z12.11 Encounter for screening for malignant neoplasm of colon (principal); D12.0 Benign neoplasm of cecum; D12.2 Benign neoplasm of ascending colon; D12.8 Benign neoplasm of rectum; K57.30 Diverticulosis of large intestine without perforation or abscess without bleeding | CPT/HCPCS: 45380; 45385 ==

== ENCOUNTER 2023-12-18 15:13 | Outpatient (REF) | payer OTHER, SELFPAY ==
--- NOTE | ~2023-12-18 | MM_ITS ---
EXAMINATION: MM SCREENING DIGITAL BREAST TOMOSYNTHESIS, BILATERAL CLINICAL INFORMATION: Screening. Asymptomatic. COMPARISON: Mammography: Comparison is made with available priors TECHNIQUE: Digital breast mammography with tomosynthesis is performed in both the craniocaudal and mediolateral oblique views along with computer-aided detection (CAD). FINDINGS: The breasts are heterogeneously dense, which may obscure small masses (ACR BI-RADS breast composition Category c). There are no significant masses, abnormal calcifications, or other abnormalities. MM/MM tomosynthesis screening BI IMPRESSION: No mammographic evidence of malignancy. ASSESSMENT: BI-RADS BI-RADS 1 - Negative RECOMMENDATION: Routine annual mammography screening. 1 year F/U This examination should not preclude the clinical evaluation of a suspicious palpable abnormality. This patient's information was entered into a reminder system with a target due date for their next mammogram. Electronically signed by: Landy Au DO 12/31/2023 12:23 PM EDT
== END 2023-12-18 15:14 | disposition home or self-care (01) ==
LOC: HO.MAMMO 15:13
PROVIDERS: PCP Nurse Practitioner Family; Visit Provider Nurse Practitioner Family
DX: Z12.31 Encounter for screening mammogram for malignant neoplasm of breast (principal)
CPT/HCPCS: 77063; 77067

== ENCOUNTER → 2023-12-18 15:30 | Outpatient (BNV) | payer OTHER, SELFPAY | PROVIDERS: PCP Nurse Practitioner Family; Visit Provider Internal Medicine | DX: Z12.31 Encounter for screening mammogram for malignant neoplasm of breast (principal) | CPT/HCPCS: 77063; 77067 ==

== ENCOUNTER 2024-04-21 14:28 | Outpatient (REF) | payer OTHER, SELFPAY ==
[2024-04-21 19:41] LABS: Influenza A PCR POSITIVE (Negative); Influenza B PCR NEGATIVE (Negative); Resp Syncy Virus RNA Qual PCR NEGATIVE (Negative); SARS COV2 PCR INHOUSE NEGATIVE (Negative)
== END 2024-04-21 14:29 | disposition home or self-care (01) ==
LOC: HO.LAB 14:28
PROVIDERS: PCP Nurse Practitioner Family; Visit Provider Nurse Practitioner Family
DX: J32.9 Chronic sinusitis, unspecified (principal)
CPT/HCPCS: 0241U; 99212

== ENCOUNTER 2025-01-18 09:10 | Outpatient (AMB) | payer OTHER, SELFPAY ==
--- NOTE | 2025-01-18 09:12 | MHC.PC.OV ---
Vital Signs 01/18/25 09:17 Height 5 ft 2.99 in Weight 183 lb 4 oz BMI 32.5 BP 114/65 Blood Pressure Location Rt brachial Position Sitting Respiration 16 Pulse 70 Pulse Source Pulse Oximeter Temp 97.9 F Temp Source Oral Pulse Oximetry (%) 97 Oxygen Delivery Method Room Air Intake Visit Reasons: Facial swelling in the am Intake Note: patient here c/o facial swelling in the am Mains And Service Supervisor Required: No Mains And Service Supervisor Name: w/daughter Accompanied by: Daughter Is last menstrual period known: No Post menopausal: No Patient : No Allergies No Known Allergies Allergy (Verified 01/18/25 09:32) Medication List - Last Reconciled 01/18/25 by Godwin Kuo, RUTHANN [id number] ala 50-200-25 mg (Biktarvy) 1 tab PO DAILY Tobacco use date assessed: 01/18/25 Dental Screening Dental Screen Date: 01/18/25 Did you have a dental visit in the last 12 months?: No Did you have a dental problem in the last 6 months where you did not have access to dental care?: No Was dental information given to patient?: Patient has dentist HPI HPI Comments History of Present Illness Details 59-year-old Luxembourger-speaking female, accompanied by her daughter, presents with complaints of facial swelling (below both eyelids) for 3 days, ended yesterday. She denies associated symptoms. No acute symptoms at this time. She took Claritin yesterday. Interpretation by the patient's daughter per patient's preference. PFSH Medical History Jaundice Bone spur of left foot High blood pressure HIV (human immunodeficiency virus infection) Endometriosis Surgical History H/O total hysterectomy Family History Mother High blood pressure Father Substance abuse Social History Household Members: Family Housing: Apartment Are you a primary career specialist to a significant other at home: No Do you presently have visiting nurse or other home services: No 75 years or older and lives alone: No Alcohol intake: current Patient Tobacco Use Status: Never used Tobacco e-Cigarette/Vaping Use: Never Used Patient : No service: No Current occupational status: employed Current occupation: [employer] Cognitive needs: No Hearing needs: No Vision needs: No Review of Systems Const Details: Const Denies chills, Denies fatigue, Denies fever(s), Denies headache(s) and Denies weakness ENT Reports as per HPI Card Denies chest pain, Denies lightheadedness, Denies dyspnea and Denies other (Palpitations) Resp Denies cough, Denies dyspnea, Denies wheezing and Denies other ( shortness of breath) Musc Denies abnormal gait, Denies myalgias, Denies arthralgias, Denies numbness and Denies tingling Skin/Breast Denies rash, Denies unusual bruising and Denies wounds Neuro Denies abnormal gait, Denies dizziness, Denies headache(s), Denies memory loss, Denies numbness, Denies Sensory deficit (Neuro), Denies tingling and Denies weakness Psych Denies anxiety, Denies depression, Denies memory loss Endo Denies cold intolerance, Denies fatigue, Denies heat intolerance, Denies polydipsia and Denies polyuria Aller/Immun Denies wheezing Physical exam (Primary Care) Vital Signs: Last Vital Signs Temp 97.9 F 01/18/25 09:17 Pulse 70 01/18/25 09:17 Resp 16 01/18/25 09:17 BP 114/65 01/18/25 09:17 Pulse Ox 97 01/18/25 09:17 Oxygen Delivery Method Room Air 01/18/25 09:17 BMI result Body Mass Index 32.5 Tobacco/Smoking Status: Tobacco use Status Tobacco use date assessed 01/18/25 01/18/25 09:20 Patient Tobacco Use Status Never used Tobacco 01/18/25 09:15 e-Cigarette/Vaping Use Never Used 01/18/25 09:15 Const Other: General: no acute distress and well developed Nutritional Appearance: well nourished Orientation/consciousness: patient oriented x3 HENMT Head is normocephalic Bilateral ear canal and TM are normal Nasal turbinates and oropharynx are pink and moist Sinuses are nontender with palpation No auricular or cervical lymphadenopathy Resp Effort & Inspection: normal respiratory effort Auscultation: clear to auscultation bilaterally Cardio Rate: regular rate Rhythm: regular rhythm Heart sounds: S1 normal heart sound present, S2 normal heart sound present, no gallops, no murmurs and no rubs Extrem General: Yes normal to inspection, No edema and No calf tenderness Skin General: warm and dry. Normal skin color. Normal skin turgor Neuro General: patient oriented x3, gait normal and no focal neuro deficit Cranial nerves: Yes Equal, round and reactive pupils present Cognition (Neuro): normal cognition Gait exam (Neuro): Normal gait present Sensory Exam: No Sensory deficit (Neuro) Psych Appearance: grossly normal Affect: normal affect Attitude: cooperative Thought process: Normal thought process present Coding Level of Care Code Est Pt Level 3 (50764) Diagnoses Allergies T78.40XA Assessment & Plan Assessment & Plan (1) Allergies: Code(s): T78.40XA - Allergy, unspecified, initial encounter Category: Medical Plan: Recent facial swelling may be attributed to allergies. Advised to take Claritin daily. Adequate hydration encouraged. Perform fasting lab work and follow-up for an extended physical exam and labs review or transfer of care with a new provider. Return sooner with symptoms or concerns. Verbalized understanding and agreed with the plan. Orders: Orders Vitamin D 25-OH Total Today Z00.00 - Encounter for general adult medical examination without abnormal findings
[2025-01-18 09:17] VITALS: BP 114/65; PULSE 70; RESP 16; TEMP 36.6; O2SAT 97; BMI 32.5
== END 2025-01-18 09:40 | disposition home or self-care (01) ==
LOC: HO.HMCFM 09:10
PROVIDERS: PCP Nurse Practitioner Family; Visit Provider Nurse Practitioner Family
DX: T78.40XA Allergy, unspecified, initial encounter (principal)

== ENCOUNTER → 2025-01-18 09:10 | Outpatient (BNVA) | payer OTHER, SELFPAY | PROVIDERS: PCP Nurse Practitioner Family; Visit Provider Nurse Practitioner Family | DX: T78.40XA Allergy, unspecified, initial encounter (principal) | CPT/HCPCS: 99212 ==

== ENCOUNTER 2025-03-15 15:26 | Outpatient (REF) | payer OTHER, SELFPAY | END 2025-03-15 15:27 | LOC: HO.MAMMO 15:26 | PROVIDERS: PCP Nurse Practitioner Family; Visit Provider Nurse Practitioner Family | DX: Z12.31 Encounter for screening mammogram for malignant neoplasm of breast (principal) | CPT/HCPCS: 77063; 77067 ==

== ENCOUNTER → 2025-03-15 15:45 | Outpatient (BNV) | payer OTHER, SELFPAY | PROVIDERS: PCP Nurse Practitioner Family; Visit Provider Internal Medicine | DX: Z12.31 Encounter for screening mammogram for malignant neoplasm of breast (principal) | CPT/HCPCS: 77063; 77067 ==